=== PATIENT | male | born 1950 | race Caucasian/White ===

== ENCOUNTER 2023-03-11 14:23 | Outpatient (REF) | payer OTHER, SELFPAY ==
--- OUTSIDE RECORDS SUMMARY | 2023-03-11 14:25 | XMS_ITS | Continuity of Care Document ---
Author Name Unknown Organization [facility] Address [address] [place] [address] Care Team Providers Care Weight Reducing Technician Name Role Phone Saud Quinones Primary Care Physician [phone] Encounter [facility]CT[facility]_PA Date(s): 02/01/23 - 02/01/23 [facility] [address] [place] [address] Discharge Disposition: Home Allergies, Adverse Reactions, Alerts Substance Reaction Severity Status amoxicillin-clavulanate Diarrhoea Severe Acti ve predniSONE Diarrhoea Unknown Active Assessment and Plan Future Appointments Future Scheduled Tests Radiology* CT Chest w/o Contrast 02/01/23 * CT Chest w/o Contrast 09/19/22 * XR Myelogram Lumbosacral Spine 02/12/22 Immunizations Given and Recorded Vaccine Date Status Refusal Reason influenza virus vaccine, inactivated 1 05/01/22 Gi kelley influenza virus vaccine, inactivated 08/24/15 German rded influenza virus vaccine, inactivated 06/25/14 German rded influenza virus vaccine, inactivated 06/17/13 German rded influenza virus vaccine, inactivated 05/19/12 German rded influenza virus vaccine, inactivated 05/25/11 German rded influenza virus vaccine, inactivated 07/17/10 German rded influenza virus vaccine, inactivated 09/07/09 German rded influenza virus vaccine, inactivated 05/13/08 German rded influenza virus vaccine, inactivated 06/03/03 German rded influenza, unspecified formulation 05/23/21 Record ed influenza, unspecified formulation 05/18/20 Record ed influenza, unspecified formulation 05/25/19 Record ed influenza, unspecified formulation 05/26/18 Record ed influenza, unspecified formulation 06/05/17 Record ed influenza, unspecified formulation 10/24/16 Record ed tetanus-diphth toxoids (Td) adult/adol 11/08/20 Re corded tetanus-diphth toxoids (Td) adult/adol 04/15/09 Re corded tetanus-diphth toxoids (Td) adult/adol 06/05/96 Re corded pneumococcal 23-polyvalent vaccine 01/19/19 Record ed pneumococcal 23-polyvalent vaccine 07/10/13 Record ed pneumococcal 13-valent conjugate vaccine 08/24/15 Recorded tetanus/diphth/pertuss (Tdap) adult/adol 05/25/11 Recorded Novel [id number], all formulation 09/07/09 Recorded 1Result Comment: cleansed right deltoid,administered vaccine, patient tolerated well. Medications Advair Diskus 500 mcg-50 mcg inhalation powder 1 puffs, Inhale, BID, # 180 EA, 0 Refill(s), Pharmacy: [facility] #[id number], 162, cm, 08/27/22 11:15:00 EST, Height/Length Dosing, 82, kg, 08/27/22 11:15:00 EST, Weight Dosing Start Date: 01/10/23 Status: Ordered albuterol 90 mcg/inh aerosol inhaler 2 puffs, Inhale, every 4 hr, PRN as needed for wheezing, # 18 g, 3 Refill(s), Pharmacy: [email or web address] #[id number], 162, cm, 08/27/22 11:15:00 EST, Height/Length Dosing, 82, kg, 08/27/22 11:15:00 EST, Weight Dosing Start Date: 09/17/22 Status: Ordered benzonatate 200 mg oral capsule 200 mg = 1 cap, Oral, TID, PRN as needed for cough, # 42 cap, 0 Refill(s), [id number], 162, cm, 08/27/22 11:15:00 EST, Height/Length Dosing, 82, kg, 08/27/22 11:15:00 EST, Weight Dosing Start Date: 01/30/23 Stop Date: 02/13/23 Status: Ordered codeine-guaifenesin 10 mg-100 mg/5 mL oral syrup 10 mL, Oral, every 4 hr, PRN as needed for cough, # 240 mL, 0 Refill(s), [facility][id number], 162, cm, 08/27/22 11:15:00 EST, Height/Length Dosing, 82, kg, 08/27/22 11:15:00 EST, Weight Dosing Start Date: 01/30/23 Status: Ordered dexamethasone 4 mg oral tablet 4 mg = 1 tab, Oral, BID, # 20 tab, 0 Refill(s), Pharmacy: [facility] #[id number], 162, cm, 08/27/22 11:15:00 EST, Height/Length Dosing, 82, kg, 08/27/22 11:15:00 EST, Weight Dosing Start Date: 01/24/23 Stop Date: 02/03/23 Status: Ordered doxycycline hyclate 100 mg oral capsule 100 mg = 1 cap, Oral, BID, # 20 cap, 0 Refill(s), Pharmacy: [facility] #[id number], 162, cm, 08/27/22 11:15:00 EST, Height/Length Dosing, 82, kg, 08/27/22 11:15:00 EST, Weight Dosing Start Date: 01/24/23 Stop Date: 02/03/23 Status: Ordered Narcan 4 mg/0.1 mL nasal spray 1 sprays, Nasal, PRN other (see comment), as needed Start Date: 02/02/22 Status: Ordered oxyCODONE 10 mg oral tablet 10 mg = 1 tab, Oral, TID, for 28 days, # 84 tab, 0 Refill(s), Pharmacy: [email or web address] #[id number], 162, cm, 08/27/22 11:15:00 EST, Height/Length Dosing, 82, kg, 08/27/22 11:15:00 EST, Weight Dosing Start Date: 12/03/22 Stop Date: 12/31/22 Status: Ordered Symbicort 160 mcg-4.5 mcg/inh inhalation aerosol 2 puffs, Inhale, BID, # 10.2 g, 0 Refill(s), Pharmacy: [facility] #[id number], 162, cm, 08/27/22 11:15:00 EST, Height/Length Dosing, 82, kg, 08/27/22 11:15:00 EST, Weight Dosing Start Date: 10/16/22 Status: Ordered traZODone 100 mg oral tablet 2 tab, Oral, every night at bedtime, # 180 tab, 0 Refill(s), Pharmacy: [email or web address] #[id number] Start Date: 08/10/22 Status: Ordered triamcinolone 0.05% topical ointment 1 bre, Topical, QID, # 30 g, 0 Refill(s), Pharmacy: [email or web address] #[id number] Start Date: 08/20/22 Stop Date: 09/03/22 Status: Ordered Problem List Condition Confirmation Course Effective Dates Status H ealth Status Informant Acute atopic conjunctivitis Confirmed Active Allergic contact dermatitis Confirmed Active Anxiety Confirmed 05/25/19 Active Asthma Confirmed Active Benign paroxysmal positional vertigo Confirmed Active Chronic back pain Confirmed 05/29/21 Active Chronic cough Confirmed 01/19/19 Active Chronic obstructive lung disease Confirmed 11/08/[address] of abdomen abnormal Confirmed 09/12/20 Active Depressive disorder Confirmed Active Hydrocele Confirmed Active Rotator cuff syndrome 1 Confirmed Active Impotence Confirmed Active Glycosuria Confirmed Active Hypertensive disorder Confirmed Active Idiopathic osteoarthritis Confirmed Active Unilateral inguinal hernia Confirmed Active Insomnia Confirmed Active Knee joint prosthesis present Confirmed Active Lumbosacral radiculopathy Confirmed Active Mixed hyperlipidemia Confirmed Active Musculoskeletal disorder of the neck Confirmed Active Obesity Confirmed Active Osteoarthritis of knee Confirmed Active Pain of right shoulder joint Confirmed Active Panic disorder Confirmed Active Medicare annual wellness visit, initial Confirmed Active Medicare annual wellness visit, subsequent Confirmed Active Peptic ulcer without hemorrhage AND without perforation Confirmed Active 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 Active Posttraumatic stress disorder Confirmed Active Spinal stenosis of lumbar region Confirmed Active Tremor Confirmed Active 1From 05-25-2019 visit: still having pain, he did not do PT d/t cost trying to be active and do what he needs to but strength is limited in both shoulders oral NSAID's not really helping the pain either will trial lido patch and if willing to go to PT call for referral Procedures Procedure Date Related Diagnosis Body Site Status Colonoscopy 1 09/11/20 Completed Colon cancer screening 2 10/20/19 Completed Reverse prosthetic total art hroplasty of right shoulder 03/03/19 Completed Hydrocelectomy 07/09/16 Completed Femoral nerve block 3 09/07/15 Com pleted Injection of hip joint using fluoroscopic guidance 4 11/30/14 Complete d Arthroplasty 5 04/27/12 Completed Orthopedic surgery 6 04/27/12 Comp leted Back surgery 7 09/02/11 Completed Arthroscopic synovial biopsy of shoulder joint 8 07/23/04 Completed Repair of inguinal hernia 9 07/24/01 Completed Adenoidectomy Completed Tonsillectomy Completed 1WNL moderate internal hemorrhoids. 2Cologuard testing Negative 3Femoral Nerve Block W/US Guidance 09/08/2015 4Left hip joint injection 12/01/14, under fluoroscopic guidance 5Right Total Knee Arthroplasty Left Total Knee Arthroplasty 09/08/2015 6Right TKA 04/28/2012 7L3-L4, L4-L5, L5-S1 Decompression 8Right Left 2000 9bilateral Social History Social History Type Response Smoking Status Smoking tobacco use: Former tobacco user;Never; Number of years: 13; Total pack years: 10; 1 entered on: 12/27/22 Sex Male 1quit in 1979 1 PPD x 13 years Patient Care team information Care Team Personnel Name: Saud Quinones MD Position: Physician Member Role: Informed Provider Address: Address: [address] [address] Care Team Related Persons Name: NELL STALLINGS Address: Home [address] [place], [place] [id number] Name: YAJAIRA STALLINGS Name: MAURILIO VIERA
--- OUTSIDE RECORDS SUMMARY | 2023-03-11 14:25 | XMS_ITS | Continuity of Care Document ---
Author Name Unknown Organization [facility] Address [address] [place] [address] Care Team Providers Care Urologist Md Name Role Phone Saud Quinones Primary Care Physician Encounter NCTY_SC Date(s): 08/27/22 - 08/27/[address] [id number] Encounter Diagnosis Pneumonia(Discharge Diagnosis) - 08/27/22 COPD exacerbation(Discharge Diagnosis) - 08/27/22 Pneumonia, unspecified organism(Final) - Chronic obstructive pulmonary disease with (acute) exacerbation(Final) - Personal history of nicotine dependence(Final) - Other terminal clerk (current) drug therapy(Final) - Discharge Disposition: Home or Self Care Attending Physician: Khalif Espitia MD Admitting Physician: Khalif Espitia MD Allergies, Adverse Reactions, Alerts Substance Reaction Severity Status amoxicillin-clavulanate Diarrhoea Severe Acti ve predniSONE Diarrhoea Unknown Active Assessment and Plan Future Appointments Diagnostic Tests Pending * Blood Culture 08/27/22 * Blood Culture 08/27/22 Future Scheduled Tests Laboratory* PT/ INR 02/12/22 * PTT 02/12/22 * Platelet Count 02/12/22 Radiology* CT Spine Lumbar w/ Contrast 02/07/22 * XR Myelogram Lumbosacral Spine 02/12/22 * CT Abdomen and Pelvis w/o Contrast 01/03/22 Functional Status 08/27/22 Other exposure to Infectious Disease Non e Immunizations Given and Recorded Vaccine Date Status [...] formulation 06/05/17 Record ed influenza, unspecified formulation 05/28/16 Record ed tetanus-diphth toxoids (Td) adult/adol 11/08/20 Re corded tetanus-diphth toxoids (Td) adult/adol 04/15/09 Re corded tetanus-diphth toxoids (Td) adult/adol 06/05/96 Re corded pneumococcal 23-polyvalent vaccine 01/19/19 Record ed pneumococcal 23-polyvalent vaccine 07/10/13 Record ed pneumococcal 13-valent conjugate vaccine 08/24/15 Recorded tetanus/diphth/pertuss (Tdap) adult/adol 05/25/11 Recorded Novel [id number], all formulation 09/07/09 Recorded 1Result Comment: cleansed right deltoid,administered vaccine, patient tolerated well. Medications !-DuoNeb 0.5 mg-2.5 mg/3 mL inhalation solution 3 mL, NEB, QID, # 60 EA, 3 Refill(s), Pharmacy: [facility] #[id number] Start Date: 08/07/22 Status: Ordered cetirizine 10 mg oral tablet See Instructions, PRN as needed for allergy symptoms, daily, # 90 tab, 3 Refill(s), Pharmacy: [facility][id number] Start Date: 07/31/22 Status: Ordered dexamethasone 4 mg oral tablet 4 mg = 1 tab, Oral, Daily, # 10 tab, 0 Refill(s), Pharmacy: [facility] #[id number], 162, cm, 08/27/22 11:15:00 EST, Height/Length Dosing, 82, kg, 08/27/22 11:15:00 EST, Weight Dosing Start Date: 08/27/22 Stop Date: 09/06/22 Status: Ordered hydroCHLOROthiazide 12.5 mg oral capsule 1 cap, Oral, Daily, # 90 cap, 2 Refill(s), [id number] Start Date: 05/26/22 Status: Ordered magnesium oxide 400 mg (241.3 mg elemental magnesium) oral tablet 400 mg = 1 tab, Oral, BID, # 28 tab, 0 Refill(s), Pharmacy: [facility] #[id number] Start Date: 08/20/22 Stop Date: 09/03/22 Status: Ordered montelukast 10 mg oral tablet 10 mg = 1 tab, Oral, Daily, # 30 tab, 0 Refill(s), [facility]: [email or web address] #[id number] Start Date: 01/31/22 Status: Ordered Narcan 4 mg/0.1 mL nasal spray 1 sprays, Nasal, PRN other (see comment), as needed Start Date: 02/02/22 Status: Ordered omeprazole 20 mg oral delayed release capsule 1 cap, Oral, Daily, DIRECTED., # 90 cap, 2 Refill(s), Pharmacy: [facility] #[id number] Start Date: 05/26/22 Status: Ordered oxyCODONE 10 mg oral tablet 10 mg = 1 tab, Oral, TID, for 28 days, # 84 tab, 0 Refill(s), [id number] Start Date: 07/12/22 Stop Date: 08/09/22 Status: Ordered power lift chair power lift chair, power lift chair, Supply, See instructions, # 1 EA, 0 Refill(s) Start Date: 08/06/22 Status: Ordered pregabalin 150 mg oral capsule 150 mg = 1 cap, Oral, BID, # 60 cap, 0 Refill(s), [facility]acy: [facility] #[id number] Start Date: 08/20/22 Status: Ordered traZODone 100 mg oral tablet 2 tab, Oral, every night at bedtime, # 180 tab, 0 Refill(s), Pharmacy: [facility] #[id number] Start Date: 08/10/22 Status: Ordered triamcinolone 0.05% topical ointment 1 bre, Topical, QID, # 30 g, 0 Refill(s), Pharmacy: [facility] #[id number] Start Date: 08/20/22 Stop Date: 09/03/22 Status: Ordered Wixela Inhub 500 mcg-50 mcg inhalation powder See Instructions, 1 puff BID rinse mouth and throat after use, # 180 EA, 3 Refill(s), Pharmacy: [facility] #[id number] Start Date: 08/07/22 Status: Ordered Zithromax Z-Jagdish 250 mg oral tablet 1 packets, Oral, Daily, Take 2 tablets on day 1 and 1 tablet days 2 through 5 with a quantity of 6., # 6 tab, 0 Refill(s), Pharmacy: [facility] #[id number], 162, cm, 08/27/22 11:15:00 EST, Height/Length Dosing, 82, kg, 08/27/22 11:15:00 EST, Weig... Start Date: 08/27/22 Stop Date: 09/01/22 Status: Ordered Problem List Condition Confirmation Course [...] 04/28/2012 7L3-L4, L4-L5, L5-S1 Decompression 8Right Left 2001 9bilateral Results Laboratory List Name Date CBC w/ Diff 08/27/22 Comprehensive Metabolic Panel (CMP) 08/27 .Manual Differential (NCTY) 08/27/22 SARS-CoV-2 (COVID-19)/Flu/RSV (GeneXpert ) (COVID-19/Flu/RSV (GeneXpert)) 08/27/22 Most recent to oldest [Reference Range]: 1 WBC [5.0-10.0 x10^3/mcL] 5.3 x10^3/mcL (08/27/22 11:41 AM) RBC [4.6-6.0 x10^6/mcL] 4.8 x10^6/mcL (08/27/22 11:41 AM) Segs Man [40-75 %] 58 % (08/27/22 11:41 AM) Lymph Man [20-50 %] 14 % *LOW* (08/27/22 11:41 AM) [place] Man 12 % *NA* (08/27/22 11:41 AM) Eos Man 15 % *NA* (08/27/22 11:41 AM) BUN [7-18 mg/dL] 17 mg/dL (08/27/22 11:41 AM) Glucose Level [74-106 mg/dL] 104 mg/dL (08/27/22 1141 AM) Potassium Level [3.5-5.1 mmol/L] 4.3 mmo l/L (08/27/22 11 AM) MCV [80.0-96.0] 92.5 (08/27/22 1141 AM) RBC Morph Normal (08/27/22 AM) AST [15-37 unit/L] 25 unit/L (08/27/22 AM) ALT [16-63 unit/L] 22 unit/L (08/27/2241 AM) MCHC [31.0-35.0 g/dL] 34.0 g/dL (08/27/22 AM) Sodium Level [136-145 mmol/L] 138 mmol/L (08/27/22 AM) Hct [41.0-51.0 %] 44.4 % (08/27/22 AM) Calcium Level [8.5-10.1 mg/dL] 9.0 mg/dL (08/27/22 AM) Albumin Level [3.4-5.0 g/dL] 3.0 g/dL *LOW* (08/27/22 AM) Protein Total [6.4-8.2 g/dL] 7.5 g/dL (08/27/22:41 AM) MCH [26.0-32.0 pg] 31.5 pg (08/27/22 AM) Bilirubin Total [0.2-1.0 mg/dL] 0.4 mg/d L (08/27/22 AM) Hgb [14.0-18.0 g/dL] 15.1 g/dL (08/27/22 11:41 AM) Alk Phos [46-146 unit/L] 76 unit/L (08/27/22 AM) Band Man [0-5 %] 0 % (08/27/22 11:41 AM) Platelets [130-450 x10^3/mcL] 242 x10^3/ mcL (08/27/22 1141 AM) CO2 [21-32 mmol/L] 30 mmol/L (08/27/22 11:41 AM) eGFR Non-AA [>=60] 72 (08/27/22 11:41 AM) eGFR AA [>=60] 72 (08/27/22 11:41 AM) Chloride Level [98-107 mmol/L] 100 mmol/ L (08/27/22 11:41 AM) RDW-CV [11.5-17.0 %] 13.7 % (08/27/22 11:41 AM) Abs Neut Man 3.1 x10^3/mcL *NA* (08/27/22 11:41 AM) Creatinine Level [0.70-1.30 mg/dL] 1.08 mg/dL (08/27/22 11:41 AM) SARS-CoV-2(Covid19)PCR(GXpert COVFLURSV) [Negative] Negative 1 (08/27/22 11:36 AM) Flu A (GXpert COVFLURSV) [Negative] Nega tive 2 (08/27/22 11:36 AM) RSV (GXpert COVFLURSV) [Negative] Negati ve 3 (08/27/22 11:36 AM) Flu B (GXpert COVFLURSV) [Negative] Nega tive 4 (08/27/22 11:36 AM) Baso Man [0-1 %] 1 % (08/27/22 11:41 AM) 1Result Comment: Error 2005 Operation terminated Error 2005: Motion of the syringe drive was not detected. Detected motion started at position 1165 uL and transferred 144 uL at valve position 98 with pressure 62.7 PSI [id number] 2Result Comment: Error 2005 Operation terminated Error 2005: Motion of the syringe drive was not detected. Detected motion started at position 1165 uL and transferred 144 uL at valve position 98 with pressure 62.7 PSI [id number] 3Result Comment: Error 2005 Operation terminated Error 2005: Motion of the syringe drive was not detected. Detected motion started at position 1165 uL and transferred 144 uL at valve position 98 with pressure 62.7 PSI [id number] 4Result Comment: Error 2005 Operation terminated Error 2005: Motion of the syringe drive was not detected. Detected motion started at position 1165 uL and transferred 144 uL at valve position 98 with pressure 62.7 PSI [id number] Vital Signs Most recent to oldest [Reference Range]: 1 2 3 Temperature Temporal Artery [36-38 Deg C] 36.9 Deg C (08/27/22 11:00 AM) Peripheral Pulse Rate [60-100 bpm] 79 bpm (08/27/22 2:58 PM) 84 bpm (08/27/22 2:18 PM) 83 bpm (08/27/22 2:07 PM) Heart Rate Monitored [60-100 bpm] 81 bpm (08/27/22 2:58 PM) 85 bpm (08/27/22 2:18 PM) 80 bpm (08/27/22 2:07 PM) Respiratory Rate [12-24 br/min] 20 br/min (08/27/22 2:58 PM) 18 br/min (08/27/22 2:18 PM) 20 br/min (08/27/22 2:07 PM) Blood Pressure [90-140/60-90 mmHg] 135/74mmHg (08/27/22 2:58 PM) 132/81mmHg (08/27/22 2:07 PM) 138/73mmHg (08/27/22 1:19 PM) Weight Dosing 82.00 kg (08/27/22 11:15 AM) Weight Estimated 82.00 kg (08/27/22 11:00 AM) Height/Length Dosing 162.000 cm (08/27/22 11:15 AM) Height/Length Estimated 162.000 cm (08/27/22 11:00 AM) Social History Social History Type Response Smoking Status Smoking tobacco use: Former tobacco user;Never; Number of years: 13; Total pack years: 10; 1 entered on: 12/27/21 Sex Male 1quit in 1979 1 PPD x 13 years Hospital Discharge Instructions Patient Education 08/27/2022 14:37:58 Community-Acquired Pneumonia, Adult Community-Acquired Pneumonia, Adult Pneumonia is a lung infection that causes inflammation and the buildup of mucus and fluids in the lungs. This may cause coughing and difficulty breathing. Community-acquired pneumonia is pneumonia that develops in people who are not, and have not recently been, in a hospital or other health care facility. Usually, pneumonia develops as a result of an illness that is caused by a virus, such as the commoncold and the flu (influenza). It can also be caused by bacteria or fungi. While the common cold andinfluenza can pass from person to person (are contagious), pneumonia itself is not considered contagious. What are the causes? This condition may be caused by: ??? Viruses. ??? Bacteria. ??? Fungi, such as molds or mushrooms. What increases the risk? The following factors may make you more likely to develop this condition: ??? Having certain medical conditions, such as: ??? A long-term (chronic) disease, which may include chronic obstructive pulmonary disease (COPD), asthma, heart failure, cystic fibrosis, diabetes, kidney disease, sickle cell disease, and human immunodeficiency virus (HIV). ??? A condition that increases the risk of breathing in (aspirating) mucus and other fluids from your mouth and nose. ??? A weakened body defense system (immune system). ??? Having had your spleen removed (splenectomy). The spleen is the organ that helps fight germs and infections. ??? Not cleaning your teeth and gums well (poor dental hygiene). ??? Using tobacco products. ??? Traveling to places where germs that cause pneumonia are present. ??? Being near certain animals, or animal habitats, that have germs that cause pneumonia. ??? Being older than 65 years of age. What are the signs or symptoms? Symptoms of this condition include: ??? A dry cough or a wet (productive) cough. ??? A fever. ??? Sweating or chills. ??? Chest pain, especially when breathing deeply or coughing. ??? Fast breathing, difficulty breathing, or shortness of breath. ??? Tiredness (fatigue). ??? Muscle aches. How is this diagnosed? This condition may be diagnosed based on your medical history or a physical exam. You may also havetests, including: ??? Chest X-rays. ??? Tests of the level of oxygen and other gases in your blood. ??? Tests of: ??? Your blood. ??? Mucus from your lungs (sputum). ??? Fluid around your lungs (pleural fluid). ??? Your urine. If your pneumonia is severe, other tests may be done to learn more about the cause. How is this treated? Treatment for this condition depends on many factors, such as the cause of your pneumonia, your medicines, and other medical conditions that you have. For most adults, pneumonia may be treated at home. In some cases, treatment must happen in a hospital and may include: ??? Medicines that are given by mouth (orally) or through an IV, including: ??? Antibiotic medicines, if bacteria caused the pneumonia. ??? Medicines that kill viruses (antiviral medicines), if a virus caused the pneumonia. ??? Oxygen therapy. Severe pneumonia, although rare, may require the following treatments: ??? Mechanical ventilation.This procedure uses a machine to help you breathe if you cannot breathe well on your own or maintain a safe level of blood oxygen. ??? Thoracentesis. This procedure removes any buildup of pleural fluid to help with breathing. Follow these instructions at home: Medicines ??? Take elhn-rac-gyldslf and prescription medicines only as told by your health care provider. ??? Take cough medicine only if you have trouble sleeping. Cough medicine can prevent your body from removing mucus from your lungs. ??? If you were prescribed an antibiotic medicine, take it as told by your health care provider. Donot stop taking the antibiotic even if you start to feel better. Lifestyle ??? Do not drink alcohol. ??? Do not use any products that contain nicotine or tobacco, such as cigarettes, e-cigarettes, andchewing tobacco. If you need help quitting, ask your health care provider. ??? Eat a healthy diet. This includes plenty of vegetables, fruits, whole grains, low-fat dairy products, and lean protein. General instructions ??? Rest a lot and get at least 8 hours of sleep each night. ??? Sleep in a partly upright position at night. Place a few pillows under your head or sleep in a reclining chair. ??? Return to your normal activities as told by your health care provider. Ask your health care provider what activities are safe for you. ??? Drink enough fluid to keep your urine pale yellow. This helps to thin the mucus in your lungs. ??? If your throat is sore, gargle with a salt???water mixture 3???4 times a day or as needed. To make a salt???water mixture, completely dissolve ?1 tsp (3???6 g) of salt in 1 cup (237 mL) of warm water. ??? Keep all follow-up visits as told by your health care provider. This is important. How is this prevented? You can lower your risk of developing community-acquired pneumonia by: ??? Getting the pneumonia vaccine. There are different types and schedules of pneumonia vaccines. Ask your health care provider which option is best for you. Consider getting the pneumonia vaccine if: ??? You are older than 65 years of age. ??? You are 19???65 years of age and are receiving cancer treatment, have chronic lung disease, or have other medical conditions that affect your immune system. Ask your health care provider if this applies to you. ??? Getting your influenza vaccine every year. Ask your health care provider which type of vaccine is best for you. ??? Getting regular dental checkups. ??? Washing your hands often with soap and water for at least 20 seconds. If soap and water are notavailable, use hand trauma therapist. Contact a health care provider if you have: ??? A fever. ??? Trouble sleeping because you cannot control your cough with cough medicine. Get help right away if: ??? Your shortness of breath becomes worse. ??? Your chest pain increases. ??? Your sickness becomes worse, especially if you are an older adult or have a weak immune system. ??? You cough up blood. These symptoms may represent a serious problem that is an emergency. Do not wait to see if the symptoms will go away. Get medical help right away. Call your local emergency services (911 in the [place] Do not drive yourself to the hospital. Summary ??? Pneumonia is an infection of the lungs. ??? Community-acquired pneumonia develops in people who have not been in the hospital. It can be caused by bacteria, viruses, or fungi. ??? This condition may be treated with antibiotics or antiviral medicines. ??? Severe pneumonia may require a hospital stay and treatment to help with breathing. This information is not intended to replace advice given to you by your health care provider. Make sure you discuss any questions you have with your health care provider. Document Revised: 05/03/2020 Document Reviewed: 05/03/2020 [employer] Patient Education ?? 2021 [employer]. Follow Up Care 08/27/2022 11:00:01 With:Follow up with primary care provider Address: When:1 to 2 weeks only if needed Physician Emergency department Note * Telma Morris MD: PERFORM Event Display: ED Note Physician Authored Date: [id number] EVELYN STALLINGS :1950 Age:72 years Sex:Male Visit Date:08/27/2022 Primary Care Physician: Saud Quinones MD Basic Information Time Seen: Telma Morris MD / 08/27/2022 11:17 Chief Complaint Worsening SOB for over a week. Nebulizer and inhaler use at home with minimal effect. Pt with h/o asthma and COPD per pt. states intermittent fevers with O2 sats at 85% yesterday, did not come in yesterday because it's more expensive on the weekend History Of Present Illness: 72-year-old male with??multiple medical problems including??anxiety, asthma, chronic back pain, COPD with chronic cough,??RENY,??depression, hypertension,??insomnia,??obesity,??panic disorder,??tremor, who presents to the emergency department c/o 1 week of cough, sob,??and subjective fevers. Pt says this feels like his previous episode of PNA. He denies CP, dizziness, palpitations. He has had no abd pain, n/v/c/d but reports decreased appetite and fatigue. No le swelling, no hemoptysis. Physical Exam Vitals & Measurements T:??36.9?C ??(Temporal Artery)?? HR:??79??(Peripheral)?? HR:??81??(Monitored)?? RR:??20?? BP:??135/74?? SpO2:??94%?? HT:??162.000??cm?? WT:??82.00??kg??(Estimated)?? Pain Score:??0?? O2 Flow Rate:??2?? O2 Therapy:??Nasal cannula?? General: A&Ox3, Calm, no apparent distress, well developed, pleasant and cooperative ?? HEENT: Head ATNC. Eyes: KIERSTEN. Extraocular Mobility: intact and symmetrical. Conjunctiva: non-injected, anicteric, no discharge. Oral Cavity: moist. Neck: no masses, no crepitus. Lymph Nodes: no cervical lymphadenopathy? Respiratory: CTA bilaterally, no wheezing, no rales/crackles? CV: RRR, normal S1, normal S2, no murmurs, rubs or gallops ?? Abdomen : soft, non-tender, non-distended, no rebound or guarding, no hepatosplenomegaly ?? Extremities: no le swelling, warm and well-perfused, no cyanosis, capillary refill <2 seconds? Skin: no rash, no lesions, no bruising? Neuro: normal tone, normal strength in all 4 extremities, sensation intact?? Medical Decision Makin-year-old male with??multiple medical problems including??anxiety, asthma, chronic back pain, COPD with chronic cough,??RENY,??depression, hypertension,??insomnia,??obesity,??panic disorder,??tremor, who presents to the emergency department c/o 1 week of cough, sob,??and subjective fevers. Pt satting in the low 80ies on r/a on arrival, requiring 2L via n/c. Pt not on oxygen at home He is otherwise well and non toxic appearing, speaking in short sentences without use of accessory muscles DDx includes PNA, copd exacerbation, viral respiratory illness.??much less likely ACS, heart failure, PE Plan: labs, cxr, nebs, solumedrol, monitor and r/a ?? Labs reassuring, CXR with areas of opacities concerning for PNA??in the setting of report of fevers. Pt received ceftriaxone IV,??soluMedrol and nebs, after which his sat at rest was 89% on r/a at best. I recommended admission to the hospital??but the patient declined.?? He was ANO x3, able to make his own decisions??independently. ??We discussed risks??of leaving??and he chose to??go home.?? I did discuss possibly??arranging for oxygen??at home with the nursing repair department supervisor but she said that??we could not do that.?? The patient was discharged AGAINST MEDICAL ADVICE??with??azithromycin for pneumonia,??steroids??for??COPD exacerbation,??frequent nebulizer treatments at home. ??We discussed returnprecautions, all questions answered. Procedure No Qualifying Data Assessment/Plan 1.??Pneumonia??J18.9 Ordered: Zithromax Z-Jagdish 250 mg oral tablet, 1 packets, Oral, Daily, Take 2 tablets on day 1 and 1 tablet days 2 through 5 with a quantity of 6., # 6 tab, 0 Refill(s), [id number], 162, cm, 08/27/22 11:15:00 EST, Height/Length Dosing, 82, kg, 08/27/22 11:15:00 EST, Weig... dexamethasone 4 mg oral tablet, 4 mg = 1 tab, Oral, Daily, # 10 tab, 0 Refill(s), [id number], 162, cm, 08/27/22 11:15:00 EST, Height/Length Dosing, 82, kg, 08/27/22 11:15:00 EST, Weight Dosing ?? 2.??COPD exacerbation??J44.1 Ordered: Zithromax Z-Jagdish 250 mg oral tablet, 1 packets, Oral, Daily, Take 2 tablets on day 1 and 1 tablet days 2 through 5 with a quantity of 6., # 6 tab, 0 Refill(s), Pharmacy: [facility] #[id number], 162, cm, 08/27/22 11:15:00 EST, Height/Length Dosing, 82, kg, 08/27/22 11:15:00 EST, Weig... dexamethasone 4 mg oral tablet, 4 mg = 1 tab, Oral, Daily, # 10 tab, 0 Refill(s), [id number], 162, cm, 08/27/22 11:15:00 EST, Height/Length Dosing, 82, kg, 08/27/22 11:15:00 EST, Weight Dosing ?? Orders: !-DuoNeb 0.5 mg-2.5 mg/3 mL inhalation solution, 3 mL, NEB, Soln, every 3 hr for 3 doses, First Dose: 08/27/22 11:45:00 EST, Stop Date: 08/27/22 20:44:00 EST, Physician Stop, STAT Blood Culture, Blood, Stat collect, ST - Stat, 08/27/22 12:53:00 EST, Once, Nurse collect, Print Label Blood Culture, Blood, Stat collect, ST - Stat, 08/27/22 12:53:00 EST, Once, Nurse collect, Print Label Patient Education Community-Acquired Pneumonia, Adult Follow Up With When Contact Information Follow up with primary care provider Within 1 to 2 weeks, only if needed Additional Instructions: Medication Reconciliation New Prescription azithromycin (Zithromax Z-Jagdish 250 mg oral tablet)1 packets Oral (given by mouth) every day for 5 Days. Take 2 tablets on day 1 and 1 tablet days 2 through 5 with a quantity of 6.. Refills: 0. ?? dexamethasone (dexamethasone 4 mg oral tablet)1 tab Oral (given by mouth) every day for 10 Days. Refills: 0. ?? Unchanged cetirizine (cetirizine 10 mg oral tablet)daily; as needed as needed for allergy symptoms. Refills: 3. ?? Durable Medical Equipment for Prescription (power lift chair)power lift chair. Refills: 0. ?? fluticasone-salmeterol (Wixela Inhub 500 mcg-50 mcg inhalation powder)1 puff BID rinse mouth and throat after use. Refills: 3. ?? hydroCHLOROthiazide (hydroCHLOROthiazide 12.5 mg oral capsule)1 Capsules Oral (given by mouth) every day. Refills: 2. ?? ipratropium-albuterol (!-DuoNeb 0.5 mg-2.5 mg/3 mL inhalation solution)3 [place] Nebulized inhalation (inhale using nebulizer) 4 times a day. Refills: 3. ?? magnesium oxide (magnesium oxide 400 mg (241.3 mg elemental magnesium) oral tablet)1 tab Oral (given by mouth) 2 times a day for 14 Days. Refills: 0. ?? montelukast (montelukast 10 mg oral tablet)1 tab Oral (given by mouth) every day. Refills: 0. ?? naloxone (Narcan 4 mg/0.1 mL nasal spray)1 Sprays Nasal (into the nose) as needed other (see comment). as needed. ?? omeprazole (omeprazole 20 mg oral delayed release capsule)1 Capsules Oral (given by mouth) every day. DIRECTED.. Refills: 2. ?? oxyCODONE (oxyCODONE 10 mg oral tablet)1 tab Oral (given by mouth) 3 times a day for 28 Days. for 28 days. Refills: 0. ?? pregabalin (pregabalin 150 mg oral capsule)1 Capsules Oral (given by mouth) 2 times a day. Refills:0. ?? traZODone (traZODone 100 mg oral tablet)2 tab Oral (given by mouth) every night at bedtime. Refills: 0. ?? triamcinolone topical (triamcinolone 0.05% topical ointment)1 Application Topical (on the skin) 4 times a day for 14 Days. Refills: 0. Problem List/Past Medical History Ongoing Acute atopic conjunctivitis Allergic contact dermatitis Anxiety Asthma Benign paroxysmal positional vertigo Chronic back pain Chronic cough Chronic obstructive lung disease CT of abdomen abnormal Depressive disorder Glycosuria Hydrocele Hypertensive disorder Idiopathic osteoarthritis Impotence Insomnia Knee joint prosthesis present Lumbosacral radiculopathy Medicare annual wellness visit, initial Medicare annual wellness visit, subsequent Mixed hyperlipidemia Musculoskeletal disorder of the neck Obesity Osteoarthritis of knee Pain of right shoulder joint Panic disorder Peptic ulcer without hemorrhage AND without perforation Peripheral axonal neuropathy Posttraumatic stress disorder Rotator cuff syndrome Spinal stenosis of lumbar region Tremor Unilateral inguinal hernia Historical No qualifying data Procedure/Surgical History ???Colonoscopy (09/12/2020)???Colon cancer screening (10/21/2019)???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)???Hydrocelectomy (07/10/2016)???Femoral nerve block (09/08/2015)???Injection of hip joint using fluoroscopic guidance (12/01/2014)???Arthroplasty (04/28/2012)???Orthopedic surgery (04/28/2012)???Back surgery (09/03/2011)???Arthroscopic synovial biopsy of shoulder joint (07/24/2004)???Repair of inguinal hernia (07/25/2001)???Adenoidectomy???Tonsillectomy Medication Administration Given !-DuoNeb 0.5 mg-2.5 mg/3 mL inhalation solution, 3 mL, 3 mL, NEB cefTRIAXone, IV Piggyback SOLU-Medrol, 125 mg, IV Push Allergies amoxicillin-clavulanate??(Diarrhoea) predniSONE??(Diarrhoea) Social History Alcohol Current, Beer, Daily Electronic Cigarette/Vaping Electronic Cigarette Use: Never. Employment/School Retired, Work/School description: SSI. Home/Environment Lives with Spouse. Living situation: Home/Independent. Nutrition/Health Diet: Regular. Caffeine intake amount: 0. Substance Use Never Tobacco Former tobacco user Tobacco Use:. 13 year(s). Total pack years: 10. Never Smokeless Tobacco use:.- Comments: quit in 1979 1 PPD x 13 years Family History Depression: Mother. Diabetes mellitus: Mother. Disorder of heart: Sister. Disorder of kidney: Mother. Emphysema of lung: Father. Healthy adult: Brother. Lab Results CBC and Differential?? LATEST RESULTS?? HISTORICAL RESULTS?? WBC?? 08/27/22 11:41?? 5.3?? 01/02/22?? 7.4?? RBC?? 08/27/22 11:41?? 4.8?? 01/02/22?? 4.7?? Hgb?? 08/27/22 11:41?? 15.1?? 01/02/22?? 15.2?? Hct?? 08/27/22 11:41?? 44.4?? 01/02/22?? 44.6?? MCV?? 08/27/22 11:41?? 92.5?? 01/02/22?? 95.1?? MCH?? 08/27/22 11:41?? 31.5?? 01/02/22?? 32.4 ??High?? MCHC?? 08/27/22 11:41?? 34.0?? 01/02/22?? 34.1?? RDW-CV?? 08/27/22 11:41?? 13.7?? 01/02/22?? 13.8?? Platelets?? 08/27/22 11:41?? 242?? 01/02/22?? 230?? Segs Man?? 08/27/22 11:41?? 58? Lymph Man?? 08/27/22 11:41?? 14 ??Low? [place] Man?? 08/27/22 11:41?? 12? Eos Man?? 08/27/22 11:41?? 15? Baso Man?? 08/27/22 11:41?? 1? Band Man?? 08/27/22 11:41?? 0? Abs Neut Man?? 08/27/22 11:41?? 3.1? RBC Morph?? 08/27/22 11:41?? Normal? Routine Chemistry?? LATEST RESULTS?? HISTORICAL RESULTS?? Sodium Level?? 08/27/22 11:41?? 138?? 01/02/22?? 140?? Potassium Level?? 08/27/22 11:41?? 4.3?? 01/02/22?? 3.7?? Chloride Level?? 08/27/22 11:41?? 100?? 01/02/22?? 102?? CO2?? 08/27/22 11:41?? 30?? 01/02/22?? 31?? Alk Phos?? 08/27/22 11:41?? 76?? 01/02/22?? 70?? AST?? 08/27/22 11:41?? 25?? 01/02/22?? 23?? ALT?? 08/27/22 11:41?? 22?? 01/02/22?? 42?? BUN?? 08/27/22 11:41?? 17?? 01/02/22?? 22 ??High?? Glucose Level?? 08/27/22 11:41?? 104?? 01/02/22?? 97?? Creatinine Level?? 08/27/22 11:41?? 1.08?? 01/02/22?? 1.11?? eGFR AA?? 08/27/22 11:41?? 72? eGFR Non-AA?? 08/27/22 11:41?? 72? Calcium Level?? 08/27/22 11:41?? 9.0?? 01/02/22?? 8.9?? Protein Total?? 08/27/22 11:41?? 7.5?? 01/02/22?? 7.3?? Albumin Level?? 08/27/22 11:41?? 3.0 ??Low?? 01/02/22?? 3.4?? Bilirubin Total?? 08/27/22 11:41?? 0.4?? 01/02/22?? 0.5? Infectious Disease?? LATEST RESULTS?? SARS-CoV-2(Covid19)PCR(GXpert COVFLURSV)?? 08/27/22 11:36?? Negative?? Flu A (GXpert COVFLURSV)?? 08/27/22 11:36?? Negative?? Flu B (GXpert COVFLURSV)?? 08/27/22 11:36?? Negative?? RSV (GXpert COVFLURSV)?? 08/27/22 11:36?? Negative? Electronically Signed on 08/27/22 03:49 PM Telma Morris MD Emergency department Discharge instructions * Telma Morris MD: PERFORM Event Display: ED Discharge Information Authored Date: [id number] EVELYN STALLINGS :1950 Age:72 years Sex:Male Visit Date:08/27/2022 Primary Care Physician: Saud Quinones MD Discharge Instructions We would like to thank you for allowing us to assist you with your healthcare needs. The following includes patient education materials and information regarding your injury/illness. Diagnosis from Today's Visit Pneumonia COPD exacerbation Discharge Vitals Temperature??(Temporal Artery) 98.4 ??F (36.9 ??C) Heart Rate??(Peripheral) 79 Heart Rate??(Monitored) 81 Respiratory Rate?? 20 Blood Pressure?? 135/74?? Height?? 63.78 in (162.000 cm) Weight??(Estimated) 180.81 lb (82.00 kg) Allergies amoxicillin-clavulanate??(Diarrhoea) predniSONE??(Diarrhoea) What to Do Next Instructions from Your Care Team Please use nebulizer machine every 3 hours in the next 48 hours, then every 4 hours for 24 hours, then as previously prescribed. Take antibiotics as prescribed, follow package directions. Also take Dexamethasone 4mg daily for the next 10 days. Return to the ED for any new or worsening symptoms. You Need to Schedule the Following Appointments Follow Up with??Follow up with primary care provider When:??Within 1 to 2 weeks, only if needed Upcoming Scheduled Appointments Saturday 2:00 PM EDT ?? 2022 10:40 AM EDT ?? You were treated today on an emergency basis; it may be stewart to contact your primary care provider to notify them of your visit today. You may have been referred to your regular doctor or a specialist, please follow up as instructed. If your condition worsens or you can't get in to see the doctor, contact the Emergency Department. Medications What How Much When Why Instructions Next Dose New azithromycin (Zithromax Z-Jagdish 250 mg oral tablet) 1 packets Oral (given by mouth) Every day Pneumonia COPD exacerbation Duration: 5 Days Take 2 tablets on day 1 and 1 tablet days 2 through 5 with a quantity of 6. ?? Pickup at [facility][id number] New dexamethasone (dexamethasone 4 mg oral tablet) 1 tab Oral (given by mouth) Every day Pneumonia COPD exacerbation Duration: 10 Days Pickup at [facility] #[id number] Unchanged cetirizine (cetirizine 10 mg oral tablet) See instructions daily, As needed for as needed for allergy symptoms ?? Unchanged Durable Medical Equipment for Prescription (power lift chair) See instructions Spinal stenosis of lumbar region Lumbar stenosis without neurogenic claudication Lumbar spinal stenosis Asthma power lift chair ?? Unchanged fluticasone-salmeterol (Wixela Inhub 500 mcg-50 mcg inhalation powder) See instructions Asthma 1 puff BID rinse mouth and throat after use ?? Unchanged hydroCHLOROthiazide (hydroCHLOROthiazide 12.5 mg oral capsule) 1 Capsules Oral (given by mouth) Every day Unchanged ipratropium-albuterol (!-DuoNeb 0.5 mg-2.5 mg/ 3 mL inhalation solution) 3 Milliliters Nebulized inhalation (inhale using nebulizer) 4 times a day Unchanged magnesium oxide (magnesium oxide 400 mg (241.3 mg elemental magnesium) oral tablet) 1 tab Oral (given by mouth) 2 times a day Chronic back pain Atopic eczema RENY (obstructive sleep apnea) Nocturnal leg cramps Duration: 14 Days Unchanged montelukast (montelukast 10 mg oral tablet) 1 tab Oral (given by mouth) Every day Unchanged naloxone (Narcan 4 mg/ 0.1 mL nasal spray) 1 Sprays Nasal (into the nose) As needed for other (see comment) as needed ?? Unchanged omeprazole (omeprazole 20 mg oral delayed release capsule) 1 Capsules Oral (given by mouth) Every day DIRECTED. ?? Unchanged oxyCODONE (oxyCODONE 10 mg oral tablet) 1 tab Oral (given by mouth) 3 times a day Lumbar stenosis without neurogenic claudication Duration: 28 Days for 28 days ?? Unchanged pregabalin (pregabalin 150 mg oral capsule) 1 Capsules Oral (given by mouth) 2 times a day Chronic back pain Unchanged traZODone (traZODone 100 mg oral tablet) 2 tab Oral (given by mouth) Every night at bedtime Unchanged triamcinolone topical (triamcinolone 0.05% topical ointment) 1 Application Topical (on the skin) 4 times a day Chronic back pain Atopic eczema Duration: 14 Days Pharmacy Information [facility] #[id number]: [address] [id number] [phone] Education Materials Community-Acquired Pneumonia, Adult Pneumonia is a lung infection that causes inflammation and the buildup of mucus and fluids in the lungs. This may cause coughing and difficulty breathing. Community-acquired pneumonia is pneumonia that develops in people who are not, and have not recently been, in a hospital or other health care facility. Usually, pneumonia develops as a result of an illness that is caused by a virus, such as the commoncold and the flu (influenza). It can also be caused by bacteria or fungi. While the common cold andinfluenza can pass from person to person (are contagious), pneumonia itself is not considered contagious. What are the causes? This condition may be caused by: ? Viruses. ? Bacteria. ? Fungi, such as molds or mushrooms. What increases the risk? The following factors may make you more likely to develop this condition: ? Having certain medical conditions, such as: ? A long-term (chronic) disease, which may include chronic obstructive pulmonary disease (COPD), asthma, heart failure, cystic fibrosis, diabetes, kidney disease, sickle cell disease, and human immunodeficiency virus (HIV). ? A condition that increases the risk of breathing in (aspirating) mucus and other fluids from your mouth and nose. ? A weakened body defense system (immune system). ? Having had your spleen removed (splenectomy). The spleen is the organ that helps fight germs and infections. ? Not cleaning your teeth and gums well (poor dental hygiene). ? Using tobacco products. ? Traveling to places where germs that cause pneumonia are present. ? Being near certain animals, or animal habitats, that have germs that cause pneumonia. ? Being older than 65 years of age. What are the signs or symptoms? Symptoms of this condition include: ? A dry cough or a wet (productive) cough. ? A fever. ? Sweating or chills. ? Chest pain, especially when breathing deeply or coughing. ? Fast breathing, difficulty breathing, or shortness of breath. ? Tiredness (fatigue). ? Muscle aches. How is this diagnosed? This condition may be diagnosed based on your medical history or a physical exam. You may also havetests, including: ? Chest X-rays. ? Tests of the level of oxygen and other gases in your blood. ? Tests of: ? Your blood. ? Mucus from your lungs (sputum). ? Fluid around your lungs (pleural fluid). ? Your urine. If your pneumonia is severe, other tests may be done to learn more about the cause. How is this treated? Treatment for this condition depends on many factors, such as the cause of your pneumonia, your medicines, and other medical conditions that you have. For most adults, pneumonia may be treated at home. In some cases, treatment must happen in a hospital and may include: ? Medicines that are given by mouth (orally) or through an IV, including: ? Antibiotic medicines, if bacteria caused the pneumonia. ? Medicines that kill viruses (antiviral medicines), if a virus caused the pneumonia. ? Oxygen therapy. Severe pneumonia, although rare, may require the following treatments: ? Mechanical ventilation.This procedure uses a machine to help you breathe if you cannot breathe wellon your own or maintain a safe level of blood oxygen. ? Thoracentesis. This procedure removes any buildup of pleural fluid to help with breathing. Follow these instructions at home: Medicines ? Take bopd-ios-foogchc and prescription medicines only as told by your health care provider. ? Take cough medicine only if you have trouble sleeping. Cough medicine can prevent your body from removing mucus from your lungs. ? If you were prescribed an antibiotic medicine, take it as told by your health care provider. Do notstop taking the antibiotic even if you start to feel better. Lifestyle ? Do not drink alcohol. ? Do not use any products that contain nicotine or tobacco, such as cigarettes, e- cigarettes, and chewing tobacco. If you need help quitting, ask your health care provider. ? Eat a healthy diet. This includes plenty of vegetables, fruits, whole grains, low-fat dairy products, and lean protein. General instructions ? Rest a lot and get at least 8 hours of sleep each night. ? Sleep in a partly upright position at night. Place a few pillows under your head or sleep in a reclining chair. ? Return to your normal activities as told by your health care provider. Ask your health care provider what activities are safe for you. ? Drink enough fluid to keep your urine pale yellow. This helps to thin the mucus in your lungs. ? If your throat is sore, gargle with a salt???water mixture 3???4 times a day or as needed. To make a salt???water mixture, completely dissolve ?1 tsp (3???6 g) of salt in 1 cup (237 mL) of warm water. ? Keep all follow-up visits as told by your health care provider. This is important. How is this prevented? You can lower your risk of developing community-acquired pneumonia by: ? Getting the pneumonia vaccine. There are different types and schedules of pneumonia vaccines. Ask your health care provider which option is best for you. Consider getting the pneumonia vaccine if: ? You are older than 65 years of age. ? You are 19???65 years of age and are receiving cancer treatment, have chronic lung disease, or haveother medical conditions that affect your immune system. Ask your health care provider if this applies to you. ? Getting your influenza vaccine every year. Ask your health care provider which type of vaccine is best for you. ? Getting regular dental checkups. ? Washing your hands often with soap and water for at least 20 seconds. If soap and water are not available, use hand trauma therapist. Contact a health care provider if you have: ? A fever. ? Trouble sleeping because you cannot control your cough with cough medicine. Get help right away if: ? Your shortness of breath becomes worse. ? Your chest pain increases. ? Your sickness becomes worse, especially if you are an older adult or have a weak immune system. ? You cough up blood. These symptoms may represent a serious problem that is an emergency. Do not wait to see if the symptoms will go away. Get medical help right away. Call your local emergency services (911 in the [place] Do not drive yourself to the hospital. Summary ? Pneumonia is an infection of the lungs. ? Community-acquired pneumonia develops in people who have not been in the hospital. It can be causedby bacteria, viruses, or fungi. ? This condition may be treated with antibiotics or antiviral medicines. ? Severe pneumonia may require a hospital stay and treatment to help with breathing. This information is not intended to replace advice given to you by your health care provider. Make sure you discuss any questions you have with your health care provider. Document Revised: 05/03/2020 Document Reviewed: 05/03/2020 [employer] Patient Education ?? 2021 [employer] Tests Performed Medications and Immunizations Administered Given !-DuoNeb 0.5 mg-2.5 mg/3 mL inhalation solution, 3 mL, 3 mL, NEB cefTRIAXone, IV Piggyback SOLU-Medrol, 125 mg, IV Push Lab Test Name Test Result Date/Time WBC 5.3 x10^3/mcL 08/27/2022 11:41 EST RBC 4.8 x10^6/mcL 08/27/2022 11:41 EST Hgb 15.1 g/dL 08/27/2022 11:41 EST Hct 44.4 % 08/27/2022 11:41 EST MCV 92.5 08/27/2022 11:41 EST MCH 31.5 pg 08/27/2022 11:41 EST MCHC 34.0 g/dL 08/27/2022 11:41 EST RDW-CV 13.7 % 08/27/2022 11:41 EST Platelets 242 x10^3/mcL 08/27/2022 11:41 EST Segs Man 58 % 08/27/2022 11:41 EST Lymph Man 14 % 08/27/2022 11:41 EST [place] Man 12 % 08/27/2022 11:41 EST Eos Man 15 % 08/27/2022 11:41 EST Baso Man 1 % 08/27/2022 11:41 EST Band Man 0 % 08/27/2022 11:41 EST Abs Neut Man 3.1 x10^3/mcL 08/27/2022 11:41 EST RBC Morph Normal 08/27/2022 11:41 EST Sodium Level 138 mmol/L 08/27/2022 11:41 EST Potassium Level 4.3 mmol/L 08/27/2022 11:41 EST Chloride Level 100 mmol/L 08/27/2022 11:41 EST CO2 30 mmol/L 08/27/2022 11:41 EST Alk Phos 76 unit/L 08/27/2022 11:41 EST AST 25 unit/L 08/27/2022 11:41 EST ALT 22 unit/L 08/27/2022 11:41 EST BUN 17 mg/dL 08/27/2022 11:41 EST Glucose Level 104 mg/dL 08/27/2022 11:41 EST Creatinine Level 1.08 mg/dL 08/27/2022 11:41 EST eGFR AA 72 08/27/2022 11:41 EST eGFR Non-AA 72 08/27/2022 11:41 EST Calcium Level 9.0 mg/dL 08/27/2022 11:41 EST Protein Total 7.5 g/dL 08/27/2022 11:41 EST Albumin Level 3.0 g/dL 08/27/2022 11:41 EST Bilirubin Total 0.4 mg/dL 08/27/2022 11:41 EST SARS-CoV-2(Covid19)PCR(GXpert COVFLURSV) NEGATIVE 08/27/2022 11:36 EST Flu A (GXpert COVFLURSV) NEGATIVE 08/27/2022 11:36 EST Flu B (GXpert COVFLURSV) Neg-GeneXPert 08/27/2022 11:36 EST RSV (GXpert COVFLURSV) Neg-GeneXPert 08/27/2022 11:36 EST Patient/Chief Knowledge Officer Signature Patient Name:EVELYN STALLINGS I have received this information and my questions have been answered. Patient/Chief Knowledge Officer Name: Patient/Chief Knowledge Officer Signature: Relationship to Patient: Witness Name/Signature: Date: Electronically Signed on: 08/27/2022 15:43 ESTSigned by:Indra Emergency department Note * Fidelina Mcclain: PERFORM Event Display: ED Notes Authored Date: [id number] Patient Care team information Personnel Name: Saud Quinones MD Address: Address: [address]
--- OUTSIDE RECORDS SUMMARY | 2023-03-11 14:25 | XMS_ITS | Continuity of Care Document ---
Author Name Unknown Organization [facility] Address [address] [place] [address] Care Team Providers Care Audio Visual Director Name Role Phone Saud Quinones Primary Care Physician Encounter [facility] Date(s): 08/20/22 - 08/20/[address] [id number] Discharge Disposition: Home or Self Care Attending Physician: Saud Quinones MD Admitting Physician: Saud Quinones MD Referring Physician: Saud Quinones MD Allergies, Adverse Reactions, Alerts Substance Reaction Severity Status amoxicillin-clavulanate Diarrhoea Severe Acti ve predniSONE Diarrhoea Unknown Active Assessment and Plan Future Appointments Future Scheduled Tests Laboratory* PT/ INR 02/12/22 * PTT 02/12/22 * Platelet Count 02/12/22 Radiology* CT Spine Lumbar w/ Contrast 02/07/22 * XR Myelogram Lumbosacral Spine 02/12/22 * CT Abdomen and Pelvis w/o Contrast 01/03/22 Immunizations Given and Recorded Vaccine Date Status [...] Recorded tetanus/diphth/pertuss (Tdap) adult/adol 05/25/11 Recorded Novel [id number], all formulation 09/07/09 Recorded 1Result Comment: cleansed right deltoid,administered vaccine, patient tolerated well. Medications !-DuoNeb 0.5 mg-2.5 mg/3 mL inhalation solution 3 mL, NEB, QID, # 60 EA, 3 Refill(s), Pharmacy: [facility] #[id number] Start Date: 08/07/22 Status: Ordered cetirizine 10 mg oral tablet See Instructions, PRN as needed for allergy symptoms, daily, # 90 tab, 3 Refill(s), Pharmacy: [facility] #[id number] Start Date: 07/31/22 Status: Ordered dexamethasone 4 mg oral tablet See Instructions, TAKE 1 TABLET BY MOUTH DAILY FOR 7 DAYS FOR 7 DAYS, # 7 tab, 0 Refill(s), Pharmacy: [facility] #[id number] Start Date: 08/01/22 Status: Ordered hydroCHLOROthiazide 12.5 mg oral capsule 1 cap, Oral, Daily, # 90 cap, 2 Refill(s), Pharmacy: [facility] #[id number] Start Date: 05/26/22 Status: Ordered magnesium oxide 400 mg (241.3 mg elemental magnesium) oral tablet 400 mg = 1 tab, Oral, BID, # 28 tab, 0 Refill(s), Pharmacy: [facility] #[id number] Start Date: 08/20/22 Stop Date: 09/03/22 Status: Ordered modafinil 100 mg oral tablet 100 mg = 1 tab, Oral, every morning, # 30 tab, 0 Refill(s), Pharmacy: [id number] Start Date: 02/12/22 Status: Ordered montelukast 10 mg oral tablet 10 mg = 1 tab, Oral, Daily, # 30 tab, 0 Refill(s), Pharmacy: [facility] #[id number] Start Date: 01/31/22 Status: Ordered Narcan 4 mg/0.1 mL nasal spray 1 sprays, Nasal, PRN other (see comment), as needed Start Date: 02/02/22 Status: Ordered omeprazole 20 mg oral delayed release capsule 1 cap, Oral, Daily, DIRECTED., # 90 cap, 2 Refill(s), Pharmacy: [facility] #[id number] Start Date: 05/26/22 Status: Ordered oxyCODONE 10 mg oral tablet 10 mg = 1 tab, Oral, TID, for 28 days, # 84 tab, 0 Refill(s), [id number] Start Date: 07/12/22 Stop Date: 08/09/22 Status: Ordered power lift chair power lift chair, power lift chair, Supply, See instructions, # 1 EA, 0 Refill(s) Start Date: 08/06/22 Status: Ordered pregabalin 150 mg oral capsule 150 mg = 1 cap, Oral, BID, # 60 cap, 0 Refill(s), Pharmacy: [facility] #[id number] Start Date: 08/20/22 Status: Ordered traZODone 100 mg oral tablet 2 tab, Oral, every night at bedtime, # 180 tab, 0 Refill(s), Pharmacy: [facility] #[id number] Start Date: 08/10/22 Status: Ordered triamcinolone 0.05% topical ointment 1 bre, Topical, QID, # 30 g, 0 Refill(s), Pharmacy: [facility] #[id number] Start Date: 08/20/22 Stop Date: 09/03/22 Status: Ordered Wixela Inhub 500 mcg-50 mcg inhalation powder See Instructions, 1 puff BID rinse mouth and throat after use, # 180 EA, 3 Refill(s), Pharmacy: [facility] #[id number] Start Date: 08/07/22 Status: Ordered Problem List Condition Confirmation Course [...] L4-L5, L5-S1 Decompression 8Right Left 2000 9bilateral Results Laboratory List Name Date Drug Screen Urine (Drug Screen Urine w/ Opiate Conf) 08/20/22 Most recent to oldest [Reference Range]: 1 U Amph Scrn [Negative] Negative (08/20/22 4:09 PM) U Benzodia Scrn [Negative] Negative (08/20/22 4:09 PM) U Cocaine Scrn [Negative] Negative (08/20/22 4:09 PM) U Heide Scrn [Negative] Negative (08/20/22 4:09 PM) U Opiate Scrn [Negative] Negative (08/20/22 4:09 PM) U Oxy Scrn [Negative] Positive *ABN* (08/20/22 4:09 PM) U PCP Scrn [Negative] Negative (08/20/22 4:09 PM) U THC Scr [Negative] Negative (08/20/22 4:09 PM) U PPX Scr [Negative] Negative (08/20/22 4:09 PM) U Methadone Scr [Negative] Negative (08/20/22 4:09 PM) U Buprenorph Scr [Negative] Negative (08/20/22 4:09 PM) U mAMP Scr [Negative] Negative (08/20/22 4:09 PM) U TCA Scr [Negative] Negative (08/20/22 4:09 PM) Social History Social History Type Response Smoking Status Smoking tobacco use: Former tobacco user;Never; Number of years: 13; Total pack years: 10; 1 entered on: 12/27/21 Sex Male 1quit in 1979 1 PPD x 13 years Patient Care team information Personnel Name: Saud Quinones MD Address: Address: [address]
--- OUTSIDE RECORDS SUMMARY | 2023-03-11 14:25 | XMS_ITS | Continuity of Care Document ---
Author Name Unknown Organization [facility] Address [address] [place] [address] Care Team Providers Care Contour Stitcher Name Role Phone Saud Quinones Primary Care Physician Encounter NCT[facility]_[place] Date(s): 02/20/23 - 02/20/[address] [address] Encounter Diagnosis COPD exacerbation(Discharge Diagnosis) - 02/20/23 Discharge Disposition: Home or Self Care Attending Physician: Saud Quinones MD Admitting Physician: Saud Quinones MD Referring Physician: Saud Quinones MD Allergies, Adverse Reactions, Alerts Substance Reaction Severity Status amoxicillin-clavulanate Diarrhoea Severe Acti ve predniSONE Diarrhoea Unknown Active Assessment and Plan Future Appointments Future Scheduled Tests Radiology* CT Chest w/o Contrast 09/19/22 Immunizations Given and Recorded Vaccine Date Status [...] Recorded tetanus/diphth/pertuss (Tdap) adult/adol 05/25/11 Recorded Novel [id number]-[id number], all formulation 09/07/09 Recorded 1Result Comment: cleansed right deltoid,administered vaccine, patient tolerated well. Medications Advair Diskus 500 mcg-50 mcg inhalation powder 1 puffs, Inhale, BID, # 180 EA, 0 Refill(s), [facility]acy: [facility] #[id number], 162, cm, 08/27/22 11:15:00 EST, Height/Length Dosing, 82, kg, 08/27/22 11:15:00 EST, Weight Dosing Start Date: 01/10/23 Status: Ordered albuterol 90 mcg/inh aerosol inhaler 2 puffs, Inhale, every 4 hr, PRN as needed for wheezing, # 18 g, 3 Refill(s), Pharmacy: [facility] #[id number], 162, cm, 08/27/22 11:15:00 EST, Height/Length Dosing, 82, kg, 08/27/22 11:15:00 EST, Weight Dosing Start Date: 09/17/22 Status: Ordered benzonatate 200 mg oral capsule 200 mg = 1 cap, Oral, TID, PRN as needed for cough, # 42 cap, 0 Refill(s), [id number], 162, cm, 08/27/22 11:15:00 EST, Height/Length Dosing, 82, kg, 08/27/22 11:15:00 EST, Weight Dosing Start Date: 01/30/23 Stop Date: 02/13/23 Status: Ordered codeine-guaifenesin 10 mg-100 mg/5 mL oral syrup 10 mL, Oral, every 4 hr, PRN as needed for cough, # 240 mL, 0 Refill(s), Pharmacy: [facility] #[id number], 162, cm, 08/27/22 11:15:00 EST, Height/Length Dosing, 82, kg, 08/27/22 11:15:00 EST, Weight Dosing Start Date: 01/30/23 Status: Ordered dexamethasone 4 mg oral tablet 4 mg = 1 tab, Oral, BID, # 20 tab, 0 Refill(s), Pharmacy: [facility] #[id number], 162, cm, 08/27/22 11:15:00 EST, Height/Length Dosing, 82, kg, 08/27/22 11:15:00 EST, Weight Dosing Start Date: 01/24/23 Stop Date: 02/03/23 Status: Ordered doxycycline hyclate 100 mg oral capsule 100 mg = 1 cap, Oral, BID, # 20 cap, 0 Refill(s), Pharmacy: [facility] #[id number], 162, cm, 08/27/22 11:15:00 EST, Height/Length Dosing, 82, kg, 08/27/22 11:15:00 EST, Weight Dosing Start Date: 01/24/23 Stop Date: 02/03/23 Status: Ordered Narcan 4 mg/0.1 mL nasal spray 1 sprays, Nasal, PRN other (see comment), as needed Start Date: 02/02/22 Status: Ordered oxyCODONE 10 mg oral tablet 10 mg = 1 tab, Oral, TID, for 28 days, # 84 tab, 0 Refill(s), Pharmacy: [facility] #[id number], 162, cm, 08/27/22 11:15:00 EST, Height/Length Dosing, 82, kg, 08/27/22 11:15:00 EST, Weight Dosing Start Date: 12/03/22 Stop Date: 12/31/22 Status: Ordered Symbicort 160 mcg-4.5 mcg/inh inhalation aerosol 2 puffs, Inhale, BID, # 10.2 g, 0 Refill(s), Pharmacy: [facility] #[id number], 162, cm, 08/27/22 11:15:00 EST, Height/Length Dosing, 82, kg, 08/27/22 11:15:00 EST, Weight Dosing Start Date: 10/16/22 Status: Ordered traZODone 100 mg oral tablet 2 tab, Oral, every night at bedtime, # 180 tab, 0 Refill(s), Pharmacy: [facility] #[id number] Start Date: 08/10/22 Status: Ordered triamcinolone 0.05% topical ointment 1 bre, Topical, QID, # 30 g, 0 Refill(s), Pharmacy: [facility] #[id number] Start Date: 08/20/22 Stop Date: 09/03/22 Status: [...] guidance 4 11/30/14 Complete d Arthroplasty 5 9/23/12 Completed Orthopedic surgery 6 04/27/12 Comp leted [...] Physician Member Role: Informed Provider Address: Address: [address] [address] Care Team Related Persons Name: NELL STALLINGS Address: Home [address] [place], [place] [id number] Name: YAJAIRA STALLINGS Address: Home Name: MAURILIO VIERA Address: Home
--- OUTSIDE RECORDS SUMMARY | 2023-03-11 14:25 | XMS_ITS | Continuity of Care Document ---
Author Name Unknown Organization [facility] Address [address] [place] [address] Care Team Providers Care Records Manager Name Role Phone Saud Quinones Primary Care Physician Encounter NCTY_[place] Date(s): 12/03/22 - 12/03/[address] [address] Discharge Disposition: Home or Self Care Attending Physician: Saud Quinones MD Admitting Physician: Saud Quinones MD Referring Physician: Saud Quionnes MD Allergies, Adverse Reactions, Alerts Substance Reaction Severity Status amoxicillin-clavulanate Diarrhoea Severe Acti ve predniSONE Diarrhoea Unknown Active Assessment and Plan Future Appointments Diagnostic Tests Pending * Opioids and Metabolites Confirmation Panel, Urine CTOX 12/03/22 Future Scheduled Tests Laboratory* PT/ INR 02/12/22 * PTT 02/12/22 * Platelet Count 02/12/22 Radiology* CT Spine Lumbar w/ Contrast 02/07/22 * CT Chest w/o Contrast 09/19/22 * XR Myelogram Lumbosacral Spine 02/12/22 Immunizations Given and Recorded Vaccine Date Status Refusal Reason influenza virus vaccine, inactivated 1 05/01/22 Gi kelley influenza virus vaccine, inactivated 08/24/15 German rded influenza virus vaccine, inactivated 06/25/14 Germna rded influenza virus vaccine, inactivated 06/17/13 German [...] Recorded tetanus/diphth/pertuss (Tdap) adult/adol 05/25/11 Recorded Novel Sleffofic-[id number], all formulation 09/07/09 Recorded 1Result Comment: cleansed right deltoid,administered vaccine, patient tolerated well. Medications albuterol 90 mcg/inh aerosol inhaler 2 puffs, Inhale, every 4 hr, PRN as needed for wheezing, # 18 g, 3 Refill(s), Pharmacy: [facility] #[id number], 162, cm, 08/27/22 11:15:00 EST, Height/Length Dosing, 82, kg, 08/27/22 11:15:00 EST, Weight Dosing Start Date: 09/17/22 Status: Ordered Narcan 4 mg/0.1 mL nasal spray 1 sprays, Nasal, PRN other (see comment), as needed Start Date: 02/02/22 Status: Ordered oxyCODONE 10 mg oral tablet 10 mg = 1 tab, Oral, TID, for 28 days, # 84 tab, 0 Refill(s), Pharmacy: [facility] #[id number], 162, cm, 08/27/22 11:15:00 EST, Height/Length Dosing, 82, kg, 08/27/22 11:15:00 EST, Weight Dosing Start Date: 12/03/22 Stop Date: 12/31/22 Status: Ordered power lift chair power lift chair, power lift chair, Supply, See instructions, # 1 EA, 0 Refill(s) Start Date: 08/06/22 Status: Ordered Symbicort 160 mcg-4.5 mcg/inh inhalation aerosol 2 puffs, Inhale, BID, # 10.2 g, 0 Refill(s), Pharmacy: [facility] #[id number], 162, cm, 08/27/22 11:15:00 EST, Height/Length Dosing, 82, kg, 08/27/22 11:15:00 EST, Weight Dosing Start Date: 10/16/22 Status: Ordered traZODone 100 mg oral tablet 2 tab, Oral, every night at bedtime, # 180 tab, 0 Refill(s), Pharmacy: [facility] #[id number] Start Date: 08/10/22 Status: Ordered triamcinolone 0.05% topical ointment 1 bre, Topical, QID, # 30 g, 0 Refill(s), Pharmacy: [facility] #[id number] Start Date: 08/20/22 Stop Date: 09/03/22 Status: [...] 2001 9bilateral Results Laboratory List Name Date Drug Screen Urine (Drug Screen Urine w/ Opiate Conf) 12/03/22 Most recent to oldest [Reference Range]: 1 U Amph Scrn [Negative] Negative (12/03/22 2:17 PM) U Benzodia Scrn [Negative] Negative (12/03/22 2:17 PM) U Cocaine Scrn [Negative] Negative (12/03/22 2:17 PM) U Heide Scrn [Negative] Negative (12/03/22 2:17 PM) U Opiate Scrn [Negative] Negative (12/03/22 2:17 PM) U Oxy Scrn [Negative] Positive *ABN* (12/03/22 2:17 PM) U PCP Scrn [Negative] Negative (12/03/22 2:17 PM) U THC Scr [Negative] Negative (12/03/22 2:17 PM) U PPX Scr [Negative] Negative (12/03/22 2:17 PM) U Methadone Scr [Negative] Negative (12/03/22 2:17 PM) U Buprenorph Scr [Negative] Negative (12/03/22 2:17 PM) U mAMP Scr [Negative] Negative (12/03/22 2:17 PM) U TCA Scr [Negative] Negative (12/03/22 2:17 PM) Social History Social History Type Response Smoking Status Smoking tobacco use: Former tobacco user;Never; Number of years: 13; Total pack years: 10; 1 entered on: 12/27/21 Sex Male 1quit in 1979 1 PPD x 13 years Patient Care team information Care Team Personnel Name: Saud Quinones MD Position: Physician Member Role: Informed Provider Address: Address: [address] [address] Care Team Related Persons Name: NELL STALLINGS Address: Home [address] [place], [place] [id number] Name: YAJAIRA STALLINGS Address: Home Name: MAURILIO VIERA Address: [place]
--- OUTSIDE RECORDS SUMMARY | 2023-03-11 14:26 | XMS_ITS | Continuity of Care Document ---
Author Name Unknown Organization [facility] Address [address] [place] [address] Care Team Providers Care It Application Development Manager Name Role Phone Saud Quinones Primary Care Physician Encounter NCTY_[place] Date(s): 01/31/23 - 01/31/23 [facility] [address] [place] [address] Discharge Disposition: Home Allergies, Adverse Reactions, Alerts [...] Recorded tetanus/diphth/pertuss (Tdap) adult/adol 05/25/11 Recorded Novel [id number]-[id number], all formulation 09/07/09 Recorded 1Result Comment: cleansed right deltoid,administered vaccine, patient tolerated well. Medications Advair Diskus 500 mcg-50 mcg inhalation powder 1 puffs, Inhale, BID, # 180 EA, 0 Refill(s), [facility]acy: [facility] #[id number], 162, cm, 08/27/22 11:15:00 EST, Height/Length Dosing, 82, kg, 08/27/22 11:15:00 EST, Weight Dosing Start Date: 01/10/23 Status: Ordered albuterol 90 mcg/inh aerosol inhaler 2 puffs, Inhale, every 4 hr, PRN as needed for wheezing, # 18 g, 3 Refill(s), Pharmacy: [facility] #[id number], 162, cm, 08/27/22 11:15:00 EST, Height/Length Dosing, 82, kg, 08/27/22 11:15:00 EST, Weight Dosing Start Date: 09/17/22 Status: Ordered benzonatate 200 mg oral capsule 200 mg = 1 cap, Oral, TID, PRN as needed for cough, # 42 cap, 0 Refill(s), [id number], 162, cm, 08/27/22 11:15:00 EST, Height/Length Dosing, 82, kg, 08/27/22 11:15:00 EST, Weight Dosing Start Date: 01/30/23 Stop Date: 02/13/23 Status: Ordered codeine-guaifenesin 10 mg-100 mg/5 mL oral syrup 10 mL, Oral, every 4 hr, PRN as needed for cough, # 240 mL, 0 Refill(s), Pharmacy: [facility] #[id number], 162, cm, 08/27/22 11:15:00 EST, Height/Length Dosing, 82, kg, 08/27/22 11:15:00 EST, Weight Dosing Start Date: 01/30/23 Status: Ordered dexamethasone 4 mg oral tablet 4 mg = 1 tab, Oral, BID, # 20 tab, 0 Refill(s), Pharmacy: [facility] #[id number], 162, cm, 08/27/22 11:15:00 EST, Height/Length Dosing, 82, kg, 08/27/22 11:15:00 EST, Weight Dosing Start Date: 01/24/23 Stop Date: 02/03/23 Status: Ordered doxycycline hyclate 100 mg oral capsule 100 mg = 1 cap, Oral, BID, # 20 cap, 0 Refill(s), Pharmacy: [facility] #[id number], 162, cm, 08/27/22 11:15:00 EST, Height/Length Dosing, 82, kg, 08/27/22 11:15:00 EST, Weight Dosing Start Date: 01/24/23 Stop Date: 02/03/23 Status: Ordered Narcan 4 mg/0.1 mL nasal spray 1 sprays, Nasal, PRN other (see comment), as needed Start Date: 02/02/22 Status: Ordered oxyCODONE 10 mg oral tablet 10 mg = 1 tab, Oral, TID, for 28 days, # 84 tab, 0 Refill(s), Pharmacy: [facility] #[id number], 162, cm, 08/27/22 11:15:00 EST, Height/Length Dosing, 82, kg, 08/27/22 11:15:00 EST, Weight Dosing Start Date: 12/03/22 Stop Date: 12/31/22 Status: Ordered Symbicort 160 mcg-4.5 mcg/inh inhalation aerosol 2 puffs, Inhale, BID, # 10.2 g, 0 Refill(s), Pharmacy: [facility] #[id number], 162, cm, 08/27/22 11:15:00 EST, Height/Length Dosing, 82, kg, 08/27/22 11:15:00 EST, Weight Dosing Start Date: 10/16/22 Status: Ordered traZODone 100 mg oral tablet 2 tab, Oral, every night at bedtime, # 180 tab, 0 Refill(s), Pharmacy: [facility] #[id number] Start Date: 08/10/22 Status: Ordered triamcinolone 0.05% topical ointment 1 bre, Topical, QID, # 30 g, 0 Refill(s), Pharmacy: [facility] #[id number] Start Date: 08/20/22 Stop Date: 09/03/22 Status: [...] Physician Member Role: Informed Provider Address: Address: [address] [address] Care Team Related Persons Name: NELL STALLINGS Address: Home [address] [place], [place] [id number] Name: YAJAIRA STALLINGS Name: MAURILIO VIERA
--- OUTSIDE RECORDS SUMMARY | 2023-03-11 14:26 | XMS_ITS | Continuity of Care Document ---
Author Name Unknown Organization [facility] Address [address] [place] [address] Care Team Providers Care Properties Supervisor Name Role Phone Saud Quinones Primary Care Physician [phone] Encounter [facility] / [facility] Date(s): 01/29/23 - 01/29/[address] [address] Encounter Diagnosis Acute URI(Discharge Diagnosis) - 01/29/23 Discharge Disposition: Home or Self Care Attending Physician: Saud Quinones MD Admitting Physician: Saud Quinones MD Referring Physician: Saud Quinones MD Allergies, Adverse Reactions, Alerts Substance Reaction Severity Status amoxicillin-clavulanate Diarrhoea Severe Acti ve predniSONE Diarrhoea Unknown Active Assessment and Plan Future Appointments Future Scheduled Tests Radiology* CT Chest w/o Contrast 09/19/22 * XR [...] Recorded tetanus/diphth/pertuss (Tdap) adult/adol 05/25/11 Recorded Novel Aycpsmdsa-[id number], all formulation 09/07/09 Recorded 1Result Comment: cleansed right deltoid,administered vaccine, patient tolerated well. Medications Advair Diskus 500 mcg-50 mcg inhalation powder 1 puffs, Inhale, BID, # 180 EA, 0 Refill(s), Pharmacy: [facility] #[id number], 162, cm, 08/27/22 11:15:00 EST, Height/Length Dosing, 82, kg, 08/27/22 11:15:00 EST, Weight Dosing Start Date: 01/10/23 Status: Ordered albuterol 90 mcg/inh aerosol inhaler 2 puffs, Inhale, every 4 hr, PRN as needed for wheezing, # 18 g, 3 Refill(s), Pharmacy: [facility] #[id number], 162, cm, 08/27/22 11:15:00 EST, Height/Length Dosing, 82, kg, 08/27/22 11:15:00 EST, Weight Dosing Start Date: 09/17/22 Status: Ordered dexamethasone 4 mg oral tablet 4 mg = 1 tab, Oral, BID, # 20 tab, 0 Refill(s), Pharmacy: [facility] #[id number], 162, cm, 08/27/22 11:15:00 EST, Height/Length Dosing, 82, kg, 08/27/22 11:15:00 EST, Weight Dosing Start Date: 01/24/23 Stop Date: 02/03/23 Status: Ordered doxycycline hyclate 100 mg oral capsule 100 mg = 1 cap, Oral, BID, # 20 cap, 0 Refill(s), Pharmacy: [facility] #[id number], 162, cm, 08/27/22 11:15:00 EST, Height/Length Dosing, 82, kg, 08/27/22 11:15:00 EST, Weight Dosing Start Date: 01/24/23 Stop Date: 02/03/23 Status: Ordered Narcan 4 mg/0.1 mL nasal spray 1 sprays, Nasal, PRN other (see comment), as needed Start Date: 02/02/22 Status: Ordered oxyCODONE 10 mg oral tablet 10 mg = 1 tab, Oral, TID, for 28 days, # 84 tab, 0 Refill(s), Pharmacy: [facility] #[id number], 162, cm, 08/27/22 11:15:00 EST, Height/Length Dosing, 82, kg, 08/27/22 11:15:00 EST, Weight Dosing Start Date: 12/03/22 Stop Date: 12/31/22 Status: Ordered Symbicort 160 mcg-4.5 mcg/inh inhalation aerosol 2 puffs, Inhale, BID, # 10.2 g, 0 Refill(s), Pharmacy: [facility] #[id number], 162, cm, 08/27/22 11:15:00 EST, Height/Length Dosing, 82, kg, 08/27/22 11:15:00 EST, Weight Dosing Start Date: 10/16/22 Status: Ordered traZODone 100 mg oral tablet 2 tab, Oral, every night at bedtime, # 180 tab, 0 Refill(s), Pharmacy: [facility] #[id number] Start Date: 08/10/22 Status: Ordered triamcinolone 0.05% topical ointment 1 bre, Topical, QID, # 30 g, 0 Refill(s), Pharmacy: [facility] #[id number] Start Date: 08/20/22 Stop Date: 09/03/22 Status: [...] 2000 9bilateral Results Laboratory List Name Date PT/ INR 01/29/23 PTT 01/29/23 Platelet Count 01/29/23 SARS-CoV-2 (COVID-19)/Flu/RSV ([facility] ) (COVID-19/Flu/RSV ([facility])) 01/29/23 Most recent to oldest [Reference Range]: 1 Prothrombin Time [9.0-11.0 seconds] 10.3 seconds (01/29/23 4:58 PM) INR 1.0 1 *NA* (01/29/23 4:58 PM) Partial Thromboplastin Time [22-35 secon ds] 24 seconds 2 (01/29/23 4:58 PM) Platelets [130-450 x10^3/mcL] 226 x10^3/ mcL (01/29/23 4:58 PM) Employed in healthcare? No *NA* (01/29/23 4:58 PM) Symptomatic as defined by CDC? No *NA* (01/29/23 4:58 PM) Hospitalized due to COVID-19? No *NA* (01/29/23 4:58 PM) In ICU? No *NA* (01/29/23 4:58 PM) Group care resident? No *NA* (01/29/23 4:58 PM) status? Not *NA* (01/29/23 4:58 PM) SARS-CoV-2(Covid19)PCR([facility] COVFLURSV) [Negative] Negative (01/29/23 4:58 PM) Flu A ([facility] COVFLURSV) [Negative] Nega tive (01/29/23 4:58 PM) RSV ([facility] COVFLURSV) [Negative] Negati ve (01/29/23 4:58 PM) Flu B ([facility] COVFLURSV) [Negative] Nega tive (01/29/23 4:58 PM) 1Interpretive Data: INR 2-2.5 Prophylaxis: Short term DVT INR 2-3 Prophylaxis: hip and femur surgery Therapy: DVT (3 mos) PE (3-6 mos) TIA (arts therapist) Atr Fib (arts therapist) Syst. 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 Social History Social History Type Response Smoking Status Smoking tobacco use: Former tobacco user;Never; Number of years: 13; Total pack years: 10; 1 entered on: 12/27/22 Sex Male 1quit in 1979 1 PPD x 13 years Patient Care team information Care Team Personnel Name: Saud Quinones MD Position: Physician Member Role: Informed Provider Address: Address: [address] [address] Care Team Related Persons Name: NELL STALLINGS Address: Home [address] [place], [place] [id number] Name: YAJAIRA STALLINGS Name: MAURILIO VIERA
[2023-03-11 21:54] LABS: Rheumatoid Factor <8.6 IU/mL (<12.0)
[2023-03-12 09:36] LABS: Cyclic Citrullinated Peptide <2.5 U/mL (<5.0)
[2023-03-13 14:42] LABS: ANA Interpretation Positive (Negative); ANA Titer Pattern 1:160 Speckled
[2023-03-13 17:05] LABS: Alter tenuis/alternata IgG 5.1 mcg/mL (<12.0); Aspergillus fumigatus IgG 8.4 mcg/mL (<46.0); Aureobasidium pullulans IgG 4.9 mcg/mL (<18.0); Laceyella sacchari IgG 14.1 mcg/mL (<25.0); Micropolyspora faeni IgG <2.0 mcg/mL (<5.0); Penicillium Chrysogenum IgG 8.7 mcg/mL (<22.0); Phoma betae IgG 5.5 mcg/mL (<8.0)
== END 2023-03-11 14:24 | disposition home or self-care (01) ==
LOC: LBN 14:23
PROVIDERS: PCP Family Medicine; Visit Provider Physician Assistant Surgical
DX: J44.9 Chronic obstructive pulmonary disease, unspecified (principal); J84.10 Pulmonary fibrosis, unspecified; R05.3 Chronic cough; Z01.84 Encounter for antibody response examination
CPT/HCPCS: 86001; 86200; 87305; 86038; 86431

== ENCOUNTER → 2023-05-13 10:43 | Outpatient (BNVA) | payer OTHER, SELFPAY | PROVIDERS: PCP Family Medicine; Referring Provider Family Medicine; Visit Provider Physician Assistant Surgical ==

== ENCOUNTER → 2023-05-24 09:13 | Outpatient (BNVA) | payer OTHER, SELFPAY | PROVIDERS: PCP Family Medicine; Referring Provider Family Medicine; Visit Provider Student in an Organized Health Care Education/Training Program | DX: J43.9 Emphysema, unspecified (principal); J45.909 Unspecified asthma, uncomplicated; Z87.891 Personal history of nicotine dependence | CPT/HCPCS: 99214 ==

== ENCOUNTER → 2023-07-24 09:38 | Outpatient (BNVA) | payer OTHER, SELFPAY | PROVIDERS: PCP Family Medicine; Referring Provider Family Medicine; Visit Provider Physician Assistant Surgical | DX: J43.9 Emphysema, unspecified (principal); J45.909 Unspecified asthma, uncomplicated; Z87.891 Personal history of nicotine dependence | CPT/HCPCS: 99214 ==

== ENCOUNTER → 2023-10-25 08:24 | Outpatient (BNVA) | payer OTHER, SELFPAY | PROVIDERS: PCP Family Medicine; Referring Provider Family Medicine; Visit Provider Student in an Organized Health Care Education/Training Program | DX: J43.9 Emphysema, unspecified (principal); J18.9 Pneumonia, unspecified organism; Z87.891 Personal history of nicotine dependence | CPT/HCPCS: 99443 ==

== ENCOUNTER → 2023-11-08 09:16 | Outpatient (BNVA) | payer OTHER, SELFPAY | PROVIDERS: PCP Family Medicine; Referring Provider Family Medicine; Visit Provider Student in an Organized Health Care Education/Training Program | DX: J43.9 Emphysema, unspecified (principal); J18.1 Lobar pneumonia, unspecified organism; Z87.891 Personal history of nicotine dependence; J90 Pleural effusion, not elsewhere classified | CPT/HCPCS: 76604; 99214 ==

== ENCOUNTER → 2024-02-10 11:14 | Outpatient (BNVA) | payer OTHER, SELFPAY | PROVIDERS: PCP Family Medicine; Referring Provider Family Medicine; Visit Provider Physician Assistant Surgical | DX: J43.9 Emphysema, unspecified (principal); J90 Pleural effusion, not elsewhere classified; J18.1 Lobar pneumonia, unspecified organism; Z87.891 Personal history of nicotine dependence | CPT/HCPCS: 99214 ==

== ENCOUNTER → 2024-02-18 07:55 | Outpatient (BNVA) | payer OTHER, SELFPAY | PROVIDERS: PCP Family Medicine; Referring Provider Family Medicine; Visit Provider Podiatrist | DX: L60.0 Ingrowing nail (principal); M79.671 Pain in right foot | CPT/HCPCS: 11750; 99214 ==

== ENCOUNTER → 2024-06-15 08:10 | Outpatient (BNVA) | payer OTHER, SELFPAY | PROVIDERS: PCP Family Medicine; Referring Provider Family Medicine; Visit Provider Physician Assistant Surgical | DX: J43.9 Emphysema, unspecified (principal); J45.909 Unspecified asthma, uncomplicated; J90 Pleural effusion, not elsewhere classified; Z87.891 Personal history of nicotine dependence | CPT/HCPCS: 99215 ==

== ENCOUNTER 2024-06-15 18:34 | Outpatient (REF) | payer OTHER, SELFPAY | END 2024-06-15 18:35 | disposition home or self-care (01) | LOC: LBN 18:34 | PROVIDERS: PCP Family Medicine; Visit Provider Physician Assistant Surgical | DX: R10.9 Unspecified abdominal pain (principal) | CPT/HCPCS: 83013 ==

== ENCOUNTER → 2024-09-14 10:41 | Outpatient (BNVA) | payer MEDICARE, SELFPAY | PROVIDERS: PCP Family Medicine; Referring Provider Family Medicine; Visit Provider Physician Assistant Surgical | DX: J43.9 Emphysema, unspecified (principal); I50.9 Heart failure, unspecified; J90 Pleural effusion, not elsewhere classified; Z87.891 Personal history of nicotine dependence | CPT/HCPCS: 36415; 99214 ==

== ENCOUNTER 2024-09-14 13:32 | Outpatient (REF) | payer MEDICARE, SELFPAY ==
[2024-09-14 15:50] LABS: Abs Immature Grans 0.05 10^3/uL (0.0-0.06); Absolute Basophil Count 0.02 10^3/uL (0.0-0.2); Absolute Eosinophil Count 0.18 10^3/uL (0.0-0.7); Absolute Lymphocyte Count 1.15 10^3/uL (1.2-3.4); Absolute Monocyte Count 0.38 10^3/uL (0.1-0.8); Absolute Neutrophil Count 2.72 10^3/uL (1.2-6.7); Basophils % 0.4 %; HCT 45.7 % (40.0-50.0); HGB 15.7 g/dL (13.5-17.5); Immature Grans % 1.1 %; Lymphocytes % 25.6 %; MCH 31.3 pg (27.0-33.0); MCHC 34.4 % (32.0-36.0); MCV 91 fL (80-95); MPV 9.9 fL (8.0-11.0); Monocytes % 8.4 %; Neutrophils % 60.5 %; Platelet Count 183 10^3/uL (130-400); RBC 5.01 10^6/uL (4.36-5.78); RDW 14.5 % (11.8-14.1); RDW-SD 48.4 fL
== END 2024-09-14 13:33 | disposition home or self-care (01) ==
LOC: LBN 13:32
PROVIDERS: PCP Family Medicine; Visit Provider Physician Assistant Surgical
DX: J84.9 Interstitial pulmonary disease, unspecified (principal); J43.9 Emphysema, unspecified; J45.909 Unspecified asthma, uncomplicated; Z87.891 Personal history of nicotine dependence; J90 Pleural effusion, not elsewhere classified
CPT/HCPCS: 85025

== ENCOUNTER → 2024-12-16 10:15 | Outpatient (BNVA) | payer MEDICARE, SELFPAY | PROVIDERS: PCP Family Medicine; Referring Provider Family Medicine; Visit Provider Physician Assistant Surgical | DX: J43.9 Emphysema, unspecified (principal); J45.909 Unspecified asthma, uncomplicated; Z87.891 Personal history of nicotine dependence; J90 Pleural effusion, not elsewhere classified; J18.1 Lobar pneumonia, unspecified organism | CPT/HCPCS: 99214 ==

== ENCOUNTER → 2025-02-04 07:48 | Outpatient (BNVA) | payer MEDICARE, SELFPAY | PROVIDERS: PCP Family Medicine; Referring Provider Family Medicine; Visit Provider Physician Assistant Surgical | DX: J43.9 Emphysema, unspecified (principal); J45.909 Unspecified asthma, uncomplicated; J90 Pleural effusion, not elsewhere classified; J18.1 Lobar pneumonia, unspecified organism; Z87.891 Personal history of nicotine dependence | CPT/HCPCS: 99214; 36415; 94010 ==

== ENCOUNTER 2025-02-04 16:51 | Outpatient (REF) | payer MEDICARE, SELFPAY ==
[2025-02-04 10:46] LABS: NT-proBNP 149 pg/mL (<300)
== END 2025-02-04 16:52 | disposition home or self-care (01) ==
LOC: LBN 16:51
PROVIDERS: PCP Family Medicine; Visit Provider Physician Assistant Surgical
DX: I50.9 Heart failure, unspecified (principal)
CPT/HCPCS: 83880

== ENCOUNTER → 2025-03-02 10:41 | Outpatient (BNVA) | payer MEDICARE, SELFPAY | PROVIDERS: PCP Family Medicine; Referring Provider Family Medicine; Visit Provider Internal Medicine Pulmonary Disease | DX: J45.51 Severe persistent asthma with (acute) exacerbation (principal); R91.1 Solitary pulmonary nodule; Z87.891 Personal history of nicotine dependence | CPT/HCPCS: 99215 ==

== ENCOUNTER 2025-03-02 13:29 | Outpatient (CLI) | payer MEDICARE, SELFPAY ==
--- NOTE | 2025-03-02 11:30 | DI.RAD_ITS ---
Exam(s) XR CHEST 2V PA LATERAL EXAM: XR CHEST 2V PA LATERAL CLINICAL HISTORY: J45.50 Severe persistent asthma, dyspnea TECHNIQUE: 2D digital imaging was performed. Two views. COMPARISON: CR XR CHEST 2VW (D) from 01/25/[address] CHEST WO CONTRAST from 02/01/2025 FINDINGS: HEART: Normal size. Aorta: Mildly tortuous. PULMONARY VASCULATURE: Normal. MEDIASTINUM: Unremarkable. LUNGS: Scattered granulomas. Chronic interstitial changes. No focal infiltrate. PLEURAL SPACE: No pleural effusion or pneumothorax. BONE:Spine is unremarkable for age. Right shoulder prosthesis. SOFT TISSUES: Unremarkable. IMPRESSION: Chronic appearing interstitial changes. DATA REPOSITORY: RADIATION DOSE DELIVERED:
== END 2025-03-02 13:49 ==
LOC: DI 13:30
PROVIDERS: PCP Family Medicine; Visit Provider Internal Medicine Pulmonary Disease
DX: J45.50 Severe persistent asthma, uncomplicated (principal)
CPT/HCPCS: 71046

== ENCOUNTER → 2025-03-17 10:44 | Outpatient (BNVA) | payer MEDICARE, SELFPAY | PROVIDERS: PCP Family Medicine; Referring Provider Family Medicine; Visit Provider Internal Medicine Pulmonary Disease | DX: J45.50 Severe persistent asthma, uncomplicated (principal); R91.1 Solitary pulmonary nodule; R06.83 Snoring; Z87.891 Personal history of nicotine dependence | CPT/HCPCS: 99214; 36415 ==

== ENCOUNTER 2025-03-17 11:56 | Outpatient (REF) | payer MEDICARE, SELFPAY ==
[2025-03-17 13:16] LABS: Anion Gap 2.0 mmol/L (3-11); BUN 22 mg/dL (7-18); CO2 33.0 mmol/L (21.0-32.0); Calcium 8.9 mg/dL (8.5-10.1); Chloride 105 mmol/L (98-107); Estimated GFR 69.57 (mL/min/1.73m2); Glucose 102 mg/dL (74-106); Potassium 4.6 mmol/L (3.5-5.1); Sodium 140 mmol/L (136-145)
== END 2025-03-17 11:57 | disposition home or self-care (01) ==
LOC: LBN 11:56
PROVIDERS: PCP Family Medicine; Visit Provider Internal Medicine Pulmonary Disease
DX: J45.50 Severe persistent asthma, uncomplicated (principal)
CPT/HCPCS: 80048

== ENCOUNTER → 2025-05-12 09:07 | Outpatient (BNVA) | payer MEDICARE, SELFPAY | PROVIDERS: PCP Family Medicine; Referring Provider Family Medicine; Visit Provider Physician Assistant Surgical | DX: J43.9 Emphysema, unspecified (principal); J45.909 Unspecified asthma, uncomplicated; J90 Pleural effusion, not elsewhere classified; J18.1 Lobar pneumonia, unspecified organism; Z87.891 Personal history of nicotine dependence | CPT/HCPCS: 99214 ==